=== PATIENT | female | born 1985 | race Caucasian/White ===

== ENCOUNTER → 2016-10-06 | Outpatient (CLI) | payer OTHER ==
--- NOTE | 2016-10-06 12:13 | RAD ---
EXAM DESCRIPTION: Chest,2 Views CLINICAL HISTORY: 31 years, Female, RULE OUT TB TB screening COMPARISON: None. FINDINGS: Adequate inspiration without consolidation. Linear scarring at the lung bases. Cardiac silhouette normal. IMPRESSION: Clear lungs and normal cardiac silhouette Electronically signed by: Gordon Dash MD 10/06/2016 12:13 PM CDT
== END | disposition home or self-care (01) ==
LOC: RAD 11:46
DX: R76.11 Nonspecific reaction to tuberculin skin test without active tuberculosis (principal)

== ENCOUNTER 2018-07-08 18:27 | Emergency (ER) | payer SELFPAY ==
--- NOTE | 2018-07-08 19:15 | ED.PDOC ---
History of Present Illness - General Chief Complaint: Chest Pain/MD Stated Complaint: chest pain Time Seen by Provider: 07/08/18 18:36 Source: patient Exam Limitations: no limitations - History of Present Illness Initial Comments: Patient complains of a headache that started yesterday. It is frontal, throbbing, constant, and non-radiating. She has had previous episodes and rec eived an MRI and CT two years ago and was told that it could be a problem with no having a "normal" branch of an arteriole. 90 minutes [employer] she developed chest pain. It is just to the left of the sternum, constant, non-radiating, "tingling" in nature, no exacerbating nor alleviating factors. She had a previous episode two years ago and received echocardiography. She was told her heart was "pumping 40% of what its supposed to". She says she was supposed to get a cardiac catheterization but she changed her mind. No dyspnea. No light-headedness. No other complaints. Denies history of an AMI. Timing/Duration: 1-3 hours Severity: mild Improving Factors: nothing Worsening Factors: nothing Associated Symptoms: other - see HPI Allergies/Adverse Reactions: Allergies Aspirin Allergy (Verified 07/08/18 18:44) Home Medications: Ambulatory Orders Buspirone HCl 10 mg PO BID 07/08/18 QUEtiapine FUMARATE [SEROquel] 100 mg PO BEDTIME 07/08/18 Sertraline HCl [Zoloft] 50 mg PO DAILY 07/08/18 Review of Systems - Review of Systems Constitutional: States: no symptoms reported EENTM: States: no symptoms reported Respiratory: States: no symptoms reported Cardiology: States: see HPI Gastrointestinal/Abdominal: States: no symptoms reported Genitourinary: States: no symptoms reported Musculoskeletal: States: no symptoms reported Skin: States: no symptoms reported Neurological: States: see HPI Endocrine: States: no symptoms reported Hematologic/Lymphatic: States: no symptoms reported Past Medical History (General) - Patient Medical History Hx Stroke: No Hx Congestive Heart Failure: No Hx Diabetes: No Surgical History: cholecystectomy, tonsillectomy, Hysterectomy - Vaccination History Hx Influenza Vaccination: No - Social History Hx Tobacco Use: Yes - Female History Patient is a Female of Child Bearing Age (10 -59 yrs old): No Family Medical History - Family History Mother Family History: Unknown Living Status: Unknown Physical Exam - Physical Exam General Appearance: Alert Eye Exam: bilateral normal Ears, Nose, Throat: normal ENT inspection Neck: non-tender, full range of motion, supple Respiratory: lungs clear, normal breath sounds Cardiovascular/Chest: normal peripheral pulses, regular rate, rhythm, no edema Gastrointestinal/Abdominal: normal bowel sounds, non tender, soft Back Exam: normal inspection, no CVA tenderness Extremity: normal range of motion, non-tender, normal inspection Neurologic: lock setter II-XII nml as tested, no motor/sensory deficits, alert, normal mood/affect, oriented x 3 Skin Exam: normal color Lymphatic: no adenopathy Progress - Progress Progress: 07/08/18 21:49 Laboratory Tests 07/08/18 07/08/18 07/08/18 19:01 19:01 19:01 WBC 9.1 RBC 4.62 Hgb 14.5 Hct 42.8 MCV 92.8 MCH 31.3 H MCHC 33.8 RDW 13.6 Plt Count 273 MPV 7.7 Absolute Neuts (auto) 5.50 Absolute Lymphs (auto) 3.00 Absolute Monos (auto) 0.40 Absolute Eos (auto) 0.10 Absolute Basos (auto) 0.10 Neutrophils % 60.4 Lymphocytes % 33.1 Monocytes % 4.0 Eosinophils % 1.6 Basophils % 0.9 PT 9.3 INR 0.93 PTT (SP) 23.6 Sodium 135 Potassium 4.8 Chloride 101 Carbon Dioxide 26 Anion Gap 12.8 BUN 21 H Creatinine 0.72 BUN/Creatinine Ratio 29.2 H Random Glucose 80 Serum Osmolality 270.2 L Calcium 9.2 Total Bilirubin 0.7 AST 37 ALT 47 Alkaline Phosphatase 79 Creatine Kinase CK-MB (CK-2) CK-MB (CK-2) % Troponin I B-Natriuretic Peptide Serum Total Protein 8.2 Albumin 4.2 Globulin 4.0 H Albumin/Globulin Ratio 1.1 Serum HCG, Qual Urine Color Urine Appearance Urine pH Ur Specific [place] Urine Protein Urine Glucose (UA) Urine Ketones Urine Blood Urine Nitrite Urine Bilirubin Urine Urobilinogen Ur Leukocyte Esterase Urine RBC Urine WBC Ur Epithelial Cells Urine Bacteria 07/08/18 07/08/18 07/08/18 19:01 19:01 19:30 WBC RBC Hgb Hct MCV MCH MCHC RDW Plt Count MPV Absolute Neuts (auto) Absolute Lymphs (auto) Absolute Monos (auto) Absolute Eos (auto) Absolute Basos (auto) Neutrophils % Lymphocytes % Monocytes % Eosinophils % Basophils % PT INR PTT (SP) Sodium Potassium Chloride Carbon Dioxide Anion Gap BUN Creatinine BUN/Creatinine Ratio Random Glucose Serum Osmolality Calcium Total Bilirubin AST ALT Alkaline Phosphatase Creatine Kinase 73 CK-MB (CK-2) 1.4 CK-MB (CK-2) % Not Reportable Troponin I < 0.02 B-Natriuretic Peptide 5.3 Serum Total Protein Albumin Globulin Albumin/Globulin Ratio Serum HCG, Qual Negative Urine Color Urine Appearance Urine pH Ur Specific [place] Urine Protein Urine Glucose (UA) Urine Ketones Urine Blood Urine Nitrite Urine Bilirubin Urine Urobilinogen Ur Leukocyte Esterase Urine RBC Urine WBC Ur Epithelial Cells Urine Bacteria 07/08/18 20:13 WBC RBC Hgb Hct MCV MCH MCHC RDW Plt Count MPV Absolute Neuts (auto) Absolute Lymphs (auto) Absolute Monos (auto) Absolute Eos (auto) Absolute Basos (auto) Neutrophils % Lymphocytes % Monocytes % Eosinophils % Basophils % PT INR PTT (SP) Sodium Potassium Chloride Carbon Dioxide Anion Gap BUN Creatinine BUN/Creatinine Ratio Random Glucose Serum Osmolality Calcium Total Bilirubin AST ALT Alkaline Phosphatase Creatine Kinase CK-MB (CK-2) CK-MB (CK-2) % Troponin I B-Natriuretic Peptide Serum Total Protein Albumin Globulin Albumin/Globulin Ratio Serum HCG, Qual Urine Color Yellow Urine Appearance Clear Urine pH 5.5 Ur Specific [place] 1.010 Urine Protein Negative Urine Glucose (UA) Negative Urine Ketones Negative Urine Blood Negative Urine Nitrite Negative Urine Bilirubin Negative Urine Urobilinogen 0.2 Ur Leukocyte Esterase Negative Urine RBC 0-1 Urine WBC 0 Ur Epithelial Cells 1-3 Urine Bacteria 0 Bun/Cr elevated. Patient received one liter NS IV bolus and her headache and chest discomfort resolved. EKG showed NSR with no ST changes nor T wave inversions. No LBBB. Follow up EKG in three hours was unchanged. Troponin x 2 negative. The patient admitted to having problems with anxiety and that she was feeling better after a visitor came to talk with her. The symptoms today do not appear to be cardiac in nature. Patient was instructed to follow up with her primary care physician for stress testing. Care instructions given. E.R. warnings given. Questions were elicited and answered. Patient voiced understanding and agreement with the plan. Departure - Departure Clinical Impression: Chest pain, Dehydration, Headache, Anxiety Disposition: Discharge to Home or Self Care Condition: Good Departure Forms: ED Discharge - Pt. Copy, Patient Portal Self Enrollment Instructions: DI for Chest Pain, Dehydration, Adult (DC) Diet: other - as per your regular doctor. Increase your oral fluids. Activity: increase activity as tolerated Referrals: GONZALEZ CHANCE [Primary Care Provider] - 1-2 Weeks Home Medications: Ambulatory Orders Buspirone HCl 10 mg PO BID 07/08/18 QUEtiapine FUMARATE [SEROquel] 100 mg PO BEDTIME 07/08/18 Sertraline HCl [Zoloft] 50 mg PO DAILY 07/08/18 Additional Instructions: Increase your oral fluids. Get an appointment with a primary care doctor for further evaluation of your heart and anxiety. Return to the E.R. if symptoms recur. Critical Care Note - Critical Care Note Total Time (mins): 120
[2018-07-08] MEDS: SODIUM CHLORIDE 0.9% 1000ML 1,000 ML IVS ONE ×2 (20:13→20:20)
--- NOTE | 2018-07-08 20:13 | RAD ---
EXAM DESCRIPTION: Chest,1 View CLINICAL HISTORY:33 years Female, chest pain Comparison: October 06, 2016 FINDINGS: No focal lung consolidation. No pleural effusion. No pneumothorax. Cardiac and mediastinal silhouette is unremarkable. No acute osseous abnormality. Soft tissues are unremarkable. IMPRESSION: No acute findings. No focal lung consolidation. Electronically signed by: Benji Orellana MD 07/08/2018 8:10 PM CDT
[2018-07-08 21:14] VITALS: TEMP 97.9
[2018-07-08 22:05] VITALS: BP 120/79; O2SAT 97
== END 2018-07-08 22:14 | disposition home or self-care (01) ==
LOC: ER 18:27
DX: R07.9 Chest pain, unspecified (principal); E86.0 Dehydration; R51 Headache; F41.9 Anxiety disorder, unspecified; Z87.891 Personal history of nicotine dependence; Z88.8 Allergy status to other drugs, medicaments and biological substances; Z88.6 Allergy status to analgesic agent
CPT/HCPCS: 36415; 71045; 80053; 81001; 82550; 82553; 83880; 84484; 84703; 85025; 85610; 85730; 93005; J7030